=== PATIENT | female | born 1980 | race Caucasian/White ===

== ENCOUNTER → 2016-07-01 | Outpatient (CLI) | payer SELFPAY ==
[2016-07-01 08:55] LABS: ALBUMIN 3.8 gm/dL (3.5-5.0); ALK PHOS 55 IU/L (33-138); ALT 37 IU/L (12-78); ANION GAP 11.9 (10.0-19.0); AST 18 IU/L (10-40); BLOOD UREA NITROGEN 14 mg/dL (6-24); CALCIUM 8.8 mg/dL (8.5-10.5); CHLORIDE 107 mMol/L (96-110); CO2 28 mMol/L (22-32); CREATININE 0.9 mg/dL (0.5-1.1); ESTIMATED GFR (MDRD EQUATION) > 60; POTASSIUM 3.9 mMol/L (3.7-5.1); SODIUM 143 mMol/L (135-145); TOTAL BILIRUBIN 0.3 mg/dL (0.0-1.5); TOTAL PROTEIN 7.3 g/dL (6.0-8.4)
== END | disposition disaster alternative care site (69) ==
LOC: GLAB 08:00
PROVIDERS: Nurse Practitioner Acute Care
DX: E11.65 Type 2 diabetes mellitus with hyperglycemia (principal)